=== PATIENT | female | born 1960 | race Caucasian/White ===

== ENCOUNTER → 2017-09-03 | Outpatient (CLI) | payer BC | END | disposition home or self-care (01) | LOC: LAB EV 11:21 → LAB SHORT 11:21 | DX: N39.0 Urinary tract infection, site not specified (principal) | CPT/HCPCS: 87077; 87086; 87186 ==

== ENCOUNTER 2018-05-08 09:52 | Emergency (ER) | payer BC ==
[~2018-05-08] VITALS: Ht 170.2 cm; Wt 61.2 kg
[2018-05-08] MEDS ORDERED: VITAMIN D31000 UNIT PO (10:15)
[2018-05-08] MEDS ORDERED: CITA20 PO (10:15)
[2018-05-08] MEDS ORDERED: MAGOXI400 PO (10:16)
[2018-05-08] MEDS ORDERED: B Complex #11 EACH PO (10:16)
[2018-05-08] MEDS ORDERED: Fish Oil 10001000 MG PO (10:16)
[2018-05-08] MEDS ORDERED: Hair, Skin & N1 EACH PO (10:16)
[2018-05-08] MEDS ORDERED: CEPH500 PO (11:00)
== END 2018-05-08 11:15 | disposition home or self-care (01) ==
LOC: ER 09:52
DX: R50.9 Fever, unspecified (principal); Z88.2 Allergy status to sulfonamides; Z79.899 Other long term (current) drug therapy
CPT/HCPCS: 99283

== ENCOUNTER → 2018-08-05 | Outpatient (CLI) | payer BC ==
[~2018-08-05] MED LIST: B Complex #11 EACH PO; CEPH500 PO; CITA20 PO; Fish Oil 10001000 MG PO; Hair, Skin & N1 EACH PO; MAGOXI400 PO; VITAMIN D31000 UNIT PO
== END ==
LOC: LAB EV 12:44 → LAB SHORT 12:44
DX: N39.0 Urinary tract infection, site not specified (principal)
CPT/HCPCS: 87077; 87086; 87186

== ENCOUNTER → 2021-11-16 | Outpatient (CLI) | payer BC | END | disposition home or self-care (01) | LOC: LAB 12:16 → LAB SHORT 12:16 | DX: N30.01 Acute cystitis with hematuria (principal) | CPT/HCPCS: 87086 ==

== ENCOUNTER → 2022-04-20 | Outpatient (CLI) | payer OTHER, BC | END | disposition home or self-care (01) | LOC: LAB 07:26 → LAB SHORT 07:26 | DX: L82.0 Inflamed seborrheic keratosis (principal) | CPT/HCPCS: 88305 ==

== ENCOUNTER 2022-11-18 08:26 | Day surgery (SDC) | payer OTHER | END 2022-11-18 08:34 | disposition home or self-care (01) | LOC: ORSCSDS 08:26 | DX: M71.22 Synovial cyst of popliteal space [Baker], left knee (principal); Z53.9 Procedure and treatment not carried out, unspecified reason | CPT/HCPCS: A9270; J1885; J2704; J2795; J3010; J7120 ==

== ENCOUNTER 2022-12-02 11:06 | Day surgery (SDC) | payer OTHER ==
[~2022-12-02] VITALS: Ht 167.6 cm; Wt 65.5 kg
[2022-12-02] MEDS ORDERED: DULOXETINE HCL60 M1 PO (11:46)
[2022-12-02] MEDS ORDERED: LOSA50 PO (12:03)
--- NOTE | 2022-12-02 12:16 | NUR ---
12/02/22 1216 Laurie Fair CONTACT IN RIGHT EYE TAKEN OUT PER DR. CLAY'S REQUEST, PLACED IN SPECIMIN CUP AND PLACED WITH PERSONAL BELONGINGS.
--- NOTE | 2022-12-02 12:51 | NUR ---
12/02/22 1251 Melvina Richmond 30ML OF ROPIVACAINE 0.5% MIXED AND VERIFIED WITH 0.15ML OF EPI (1MG/ML) TO MAKE ROPIVACAINE 0.5% WITH EPI 1:200,000 FOR INJECTION AT OPSITE BY [facility].
[2022-12-02 14:01] VITALS: BP 117/97
== END 2022-12-02 14:04 | disposition home or self-care (01) ==
LOC: ORSCSDS 11:06
PROVIDERS: Orthopaedic Surgery
PROC: 0SBD0ZZ Excision of Left Knee Joint, Open Approach (ICD-10-PCS; principal; 2022-12-02 12:45)
DX: M71.22 Synovial cyst of popliteal space [Baker], left knee (principal); I10 Essential (primary) hypertension; Z87.891 Personal history of nicotine dependence; F41.9 Anxiety disorder, unspecified; M79.7 Fibromyalgia; Z79.899 Other long term (current) drug therapy
CPT/HCPCS: J0171; J0690; J2250; J2704; J2795; J3010; J7120

== ENCOUNTER 2022-12-12 09:34 | Emergency (ER) | payer OTHER ==
[~2022-12-12] VITALS: Ht 170.2 cm; Wt 63.5 kg
[~2022-12-12 09:34] MED LIST changes: +DULOXETINE HCL60 M1 PO; +LOSA50 PO
[2022-12-12 10:47] LABS: BASOPHILS ABSOLUTE AUTO 0.03 K/mm3 (0.00-0.23); BASOPHILS PERCENT AUTO 0 % (0-2); EOSINOPHILS ABSOLUTE AUTO 0.04 K/mm3 (0.00-0.68); EOSINOPHILS PERCENT AUTO 1 % (0-6); Hematocrit 40.3 % (33.0-51.0); Hemoglobin 13.3 g/dL (11.5-16.0); IMMATURE GRAN ABSOLUTE AUTO 0.01 K/mm3 (0.00-0.10); IMMATURE GRAN PERCENT AUTO 0 % (0-1); LYMPHOCYTES ABSOLUTE AUTO 0.87 K/mm3 (0.84-5.20); LYMPHOCYTES PERCENT AUTO 11 % (21-46); MONOCYTES ABSOLUTE AUTO 0.33 K/mm3 (0.16-1.47); MONOCYTES PERCENT AUTO 4 % (4-13); Mean Corpuscular HGB 32.4 pg (26.0-34.0); Mean Corpuscular Volume 98 fL (80-100); Mean Platelet Volume 8.5 fL (9.1-12.4); NEUTROPHILS ABSOLUTE AUTO 6.97 K/mm3 (1.96-9.15); NEUTROPHILS PERCENT AUTO 85 % (41-73); Platelet Count 338 K/mm3 (150-400); RDW Coefficient Variation 12.2 % (11.7-14.2); RDW Standard Deviation 43.8 fL (35.1-46.3); Red Blood Cell Count 4.11 M/mm3 (3.80-5.20); White Blood Cell Count 8.25 K/mm3 (4.00-11.30)
[2022-12-12 11:11] LABS: Anion Gap 6 mmol/L (6-16); Blood Urea Nitrogen 11 mg/dL (8-24); Bun/Creatinine Ratio 17.5 (12.0-20.0); C-REACTIVE PROTEIN, EXT RANGE <0.290 mg/dL (0.000-0.300); CO2, Blood 26 mmol/L (21-32); Calcium, Blood 8.9 mg/dL (8.5-10.1); Chloride, Blood 110 mmol/L (98-108); Creatinine, Blood 0.63 mg/dL (0.40-1.00); Glomerular Filtration Rate 101 (60-); Glucose, Blood 79 mg/dL (70-99); Potassium, Blood 3.8 mmol/L (3.5-5.5); Sodium, Blood 142 mmol/L (136-145)
[2022-12-12 12:00] VITALS: BP 100/60
[2022-12-12] MEDS ORDERED: Vibramycin100 MG PO (12:13)
[2022-12-15] MEDS ORDERED: Celexa20 MG PO (14:54)
[2022-12-15] MEDS ORDERED: DOXY100 PO (14:56)
== END 2022-12-12 12:28 | disposition home or self-care (01) ==
LOC: ER 09:34
PROVIDERS: Emergency Medicine
DX: L76.33 Postprocedural seroma of skin and subcutaneous tissue following a dermatologic procedure (principal); M25.562 Pain in left knee; I10 Essential (primary) hypertension; Z88.2 Allergy status to sulfonamides; Z79.899 Other long term (current) drug therapy
CPT/HCPCS: 76882; 80048; 85025; 86140; 93971; 96374; 99284-25; A9270; J1885

== ENCOUNTER 2022-12-15 08:27 | Inpatient (IN) | payer OTHER ==
[~2022-12-15] VITALS: Ht 167.6 cm; Wt 71.3 kg
[~2022-12-15 08:27] MED LIST changes: +Vibramycin100 MG PO
[2022-12-15 10:04] LABS: BASOPHILS ABSOLUTE AUTO 0.03 K/mm3 (0.00-0.23); BASOPHILS PERCENT AUTO 0 % (0-2); EOSINOPHILS ABSOLUTE AUTO 0.02 K/mm3 (0.00-0.68); EOSINOPHILS PERCENT AUTO 0 % (0-6); Hematocrit 35.5 % (33.0-51.0); Hemoglobin 12.1 g/dL (11.5-16.0); IMMATURE GRAN ABSOLUTE AUTO 0.05 K/mm3 (0.00-0.10); IMMATURE GRAN PERCENT AUTO 1 % (0-1); LYMPHOCYTES ABSOLUTE AUTO 0.33 K/mm3 (0.84-5.20); LYMPHOCYTES PERCENT AUTO 5 % (21-46); MONOCYTES ABSOLUTE AUTO 0.32 K/mm3 (0.16-1.47); MONOCYTES PERCENT AUTO 4 % (4-13); Mean Corpuscular HGB 32.5 pg (26.0-34.0); Mean Corpuscular HGB Conc 34.1 g/dL (31.5-36.5); Mean Corpuscular Volume 95 fL (80-100); NEUTROPHILS ABSOLUTE AUTO 6.62 K/mm3 (1.96-9.15); NEUTROPHILS PERCENT AUTO 90 % (41-73); Platelet Count 247 K/mm3 (150-400); RDW Coefficient Variation 12.4 % (11.7-14.2); RDW Standard Deviation 43.4 fL (35.1-46.3); Red Blood Cell Count 3.72 M/mm3 (3.80-5.20); White Blood Cell Count 7.37 K/mm3 (4.00-11.30)
[2022-12-15 10:29] LABS: Albumin, Blood 2.9 g/dL (3.4-5.0); Albumin/Globulin Ratio 0.6 (0.8-1.8); Bilirubin, Total 0.9 mg/dL (0.1-1.0); Bun/Creatinine Ratio 17.6 (12.0-20.0); Calcium, Blood 9.1 mg/dL (8.5-10.1); Creatinine, Blood 0.57 mg/dL (0.40-1.00); Globulin, Blood 4.5 g/dL (2.2-4.0); Potassium, Blood 3.4 mmol/L (3.5-5.5); Total Protein, Blood 7.4 g/dL (6.4-8.2)
[2022-12-15] MEDS ORDERED: BUPR150ER PO (12:51)
[2022-12-15 14:47] VITALS: BP 111/71
[2022-12-15] MEDS ORDERED: Celexa20 MG PO ×2 (14:54)
[2022-12-15] MEDS ORDERED: DOXY100 PO ×2 (14:56)
--- NOTE | 2022-12-15 16:05 | NUR ---
CONSULT: SR AWAN STATES SPEAKING TO DR CARMONA FOR SURG CONSULT
--- NOTE | 2022-12-15 18:13 | NUR ---
"Spiritual Care Visit | Pt. Request Pt. is sitting up in bed eating dinner when she welcomes my visit. Pt. is pleasant and verbalizes gratitude for the surgeons to address the infection in her knee. Facilitate a life review and establish rapport. Pt. 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 Considered matters of av and belief, and prayed with the Pt. Pt. verbalized gratitude for thew spiritual care visit, and welcomed this dye house hand to return tomorrow."
[2022-12-15 18:14] LABS: Body Fluid Crystals NEG (NEGATIVE)
[2022-12-15 18:23] LABS: BODY FLUID RBC 0.007 M/mm3 (0-0)
[2022-12-15 18:31] LABS: RBC Count, Synovial Fluid 7000 /mm3 (0-0)
[2022-12-15 18:32] LABS: WBC Count, Synovial Fluid 21640 /mm3 (0-180)
[2022-12-15 18:33] LABS: Appearance, Synovial Fluid Cloudy (Clear); Color, Synovial Fluid Pale Yellow (None-P Yel)
--- NOTE | 2022-12-15 18:47 | NUR ---
DR CARMONA IN TO DRAW OFF L KNEE. SENT TO LAB. PT TO BE NPO MIDNITE FOR DAY SURG TOMORROW. SBA TO BATHROOM. FWW. PAIN TOLERATED WITH 0.5 MG DILAUDID. NO OTHER CONCERNS NOTED THIS BEN. BED IN LOW POSITION, CALL LITE IN REACH, CALLS APPROP
[2022-12-15 19:08] LABS: Lymphs, Synovial Fluid 1 % (0-15); Monocytes/Macrophages, Synovia 15 % (0-65); Neutrophils, Synovial Fluid 84 % (0-24)
[2022-12-15 19:25] VITALS: BP 126/78
[2022-12-16] VITALS (22 sets, daily range): BP systolic 105–157; BP diastolic 59–100
[2022-12-16 05:41] LABS: BASOPHILS ABSOLUTE AUTO 0.02 K/mm3 (0.00-0.23); BASOPHILS PERCENT AUTO 0 % (0-2); EOSINOPHILS ABSOLUTE AUTO 0.05 K/mm3 (0.00-0.68); EOSINOPHILS PERCENT AUTO 1 % (0-6); Hemoglobin 11.2 g/dL (11.5-16.0); Mean Corpuscular HGB 32.4 pg (26.0-34.0); Mean Corpuscular HGB Conc 33.9 g/dL (31.5-36.5); Mean Corpuscular Volume 95 fL (80-100); Mean Platelet Volume 9.4 fL (9.1-12.4); Platelet Count 232 K/mm3 (150-400); RDW Coefficient Variation 12.5 % (11.7-14.2); RDW Standard Deviation 43.8 fL (35.1-46.3); Red Blood Cell Count 3.46 M/mm3 (3.80-5.20); White Blood Cell Count 5.62 K/mm3 (4.00-11.30)
[2022-12-16 05:43] LABS: IMMATURE GRAN ABSOLUTE AUTO 0.03 K/mm3 (0.00-0.10); IMMATURE GRAN PERCENT AUTO 1 % (0-1); LYMPHOCYTES ABSOLUTE AUTO 0.82 K/mm3 (0.84-5.20); LYMPHOCYTES PERCENT AUTO 15 % (21-46); MONOCYTES ABSOLUTE AUTO 0.76 K/mm3 (0.16-1.47); MONOCYTES PERCENT AUTO 14 % (4-13); NEUTROPHILS ABSOLUTE AUTO 3.94 K/mm3 (1.96-9.15); NEUTROPHILS PERCENT AUTO 70 % (41-73)
[2022-12-16 06:06] LABS: Bun/Creatinine Ratio 16.8 (12.0-20.0); Calcium, Blood 8.6 mg/dL (8.5-10.1); Creatinine, Blood 0.6 mg/dL (0.40-1.00); Potassium, Blood 3.6 mmol/L (3.5-5.5)
--- NOTE | 2022-12-16 06:18 | NUR ---
SHIFT SUMMARY PRN DILAUDID GIVEN THROUGH OUT SHIFT. PT HAS FREQUENTLY REQUESTED DILAUDID FOR PAIN LEVELS OF 3-4 ONLY WHEN SHE MOVES HER KNEE AND KEEPS ASKING WHEN SHE LAST RECEIVED IT SO SHE CAN TAKE IT SOON ITS AVAILABLE DESPITE HER PAIN LEVEL BECAUSE SHE KNOWS EVENTUALLY IT WILL GET BAD. EDUCATED PT THAT THE MEDICATION IS PRN AND SHOULD BE GIVEN FOR SEVERE PAIN AND TO REQUEST MEDICATION WHEN HER PAIN IS STARTING TO GET BAD, SINCE SHE WILL NOT TAKE ANYTHING OTHER THAN THE DILAUDID, EXPLAINED THAT SHE NEEDS TO NOT WORRY ABOUT WHEN SHE LAST RECEIVED IT AND REPORT HER PAIN WHEN SHE HAS IT. PT REFUSING TO GET OOB AND USE THE RESTROOM, PT WILL ONLY USE THE BEDPAN. PT MADE NPO SINCE MIDNIGHT. PRN TYLENOL GIVEN PER PT REQUEST FOR TEMP OF 100.4. WILL CONTINUE TO MONITOR. Q1H FIRE SAFETY CHECKS COMPLETED, NO IGNITION SOURCES FOUND.
[2022-12-16 07:02] LABS: BASOPHILS PERCENT MAN 0 % (0-2); EOSINOPHILS ABSOLUTE MAN 0.11 K/mm3 (0.00-0.68); EOSINOPHILS PERCENT MAN 2 % (0-6); LYMPHOCYTES ABSOLUTE MAN 0.89 K/mm3 (0.84-5.20); LYMPHOCYTES PERCENT MAN 16 % (21-46); MONOCYTES ABSOLUTE MAN 0.39 K/mm3 (0.16-1.47); MONOCYTES PERCENT MAN 7 % (4-13); NEUTROPHILS ABSOLUTE MAN 4.21 K/mm3 (1.96-9.15); SEG NEUTROPHILS PERCENT MAN 75 % (41-73); TOTAL CELLS COUNTED 100
--- NOTE | 2022-12-16 12:08 | NUR ---
PT OUT TO DAY SURG
--- NOTE | 2022-12-16 12:10 | NUR ---
Into sds via bed. Pt is a&ox4 and denies pain or nausea. History, Chart, Medications and Allergies reviewed before start of procedure.Lungs clear T/O to Auscultation. Patient confirms NPO status and agrees with scheduled surgery.
--- NOTE | 2022-12-16 12:15 | NUR ---
#20 PIV TO RIGHT FOREARM SLIGHTLY RED AROUND INSERTION SITE, BUT SITE NOT TENDER AND IV FLUSHES WELL.
--- NOTE | 2022-12-16 18:54 | NUR ---
PT OUT TO DAY SURG THIS AM. BACK 1630. VSS. OFF O2 NOW. >93%. PAIN UNDER CONTROL. CHRISTAL DRAIN S/S FLUID IN CONTAINER. SMALL AMT IN CONTAINER. LITTLE CHANGE SINCE BROUGHT TO ROOM. LEG IN BRACE. TOES WARM, PINK. CAP REFILL <3SEC. NO OTHER CONCERNS NOTED. BED IN LOW POSITION, CALLLITE IN REACH, CALLS APPROP
[2022-12-16 23:22] LABS: Vancomycin, Trough 8.8 ug/mL (5.0-10.0)
[2022-12-17 02:40] VITALS: BP 115/81
[2022-12-17 02:41] VITALS: BP 115/81
[2022-12-17 05:27] LABS: BASOPHILS PERCENT AUTO 0 % (0-2); EOSINOPHILS PERCENT AUTO 0 % (0-6); Hematocrit 33.8 % (33.0-51.0); Hemoglobin 11.5 g/dL (11.5-16.0); IMMATURE GRAN ABSOLUTE AUTO 0.03 K/mm3 (0.00-0.10); IMMATURE GRAN PERCENT AUTO 1 % (0-1); LYMPHOCYTES ABSOLUTE AUTO 0.49 K/mm3 (0.84-5.20); LYMPHOCYTES PERCENT AUTO 12 % (21-46); MONOCYTES ABSOLUTE AUTO 0.35 K/mm3 (0.16-1.47); MONOCYTES PERCENT AUTO 9 % (4-13); Mean Corpuscular HGB 32.5 pg (26.0-34.0); Mean Corpuscular Volume 96 fL (80-100); Mean Platelet Volume 9.3 fL (9.1-12.4); NEUTROPHILS ABSOLUTE AUTO 3.23 K/mm3 (1.96-9.15); NEUTROPHILS PERCENT AUTO 79 % (41-73); Platelet Count 266 K/mm3 (150-400); RDW Coefficient Variation 12.4 % (11.7-14.2); RDW Standard Deviation 43.8 fL (35.1-46.3); Red Blood Cell Count 3.54 M/mm3 (3.80-5.20)
[2022-12-17 05:50] LABS: Bun/Creatinine Ratio 19.1 (12.0-20.0); Calcium, Blood 8.9 mg/dL (8.5-10.1); Creatinine, Blood 0.52 mg/dL (0.40-1.00); Potassium, Blood 3.7 mmol/L (3.5-5.5)
--- NOTE | 2022-12-17 06:17 | NUR ---
SHIFT SUMMARY PAIN WELL CONTROLLED THIS SHIFT, ONLY REQUIRING TYLENOL, PT DID NOT NEED DILAUDID AND FEELS HER PAIN IS WELL CONTROLLED. CHRISTAL DRAIN HAD OUT 20CC OF SANGINOUS DRAINING AT 0000, HAS HAD NO MORE OUTPUT SINCE. Q1H FIRE SAFETY CHECKS PERFORMED, NO IGNITION SOURCES FOUND
[2022-12-17 07:57] VITALS: BP 117/73
[2022-12-17 15:25] VITALS: BP 114/63
--- NOTE | 2022-12-17 18:23 | NUR ---
SHIFT SUMMARY: JONATHAN IS A&OX4. VSS, NO ACUTE EVENTS THIS SHIFT. PER DR. RINALDI, PT WILL REQUIRE 2-4 WEEKS OF IV ANTIBIOTICS, PLAN TO CONTINUE THE CURRENT SCHEDULE OF VANCOMYCIN AND ROCEPHIN. PT WILL REQUIRE A PICC LINE, LUNCHEONETTE OPERATOR UPDATED AND ORDER PLACED. IMMOBILIZER IN PLACE TO LLE, PT IS A STANDBY ASSIST TO THE BEDSIDE COMMODE. CHRISTAL DRAIN WITH MINIMAL OUTPUT THIS SHIFT. PT IS LYING IN BED WITH THE CALL LIGHT IN REACH. WCTM UNTIL REPORT IS GIVEN TO BOTTOM SAW OPERATOR RN.
[2022-12-17 20:24] VITALS: BP 110/83
[2022-12-17 23:48] LABS: Vancomycin, Trough 18.7 ug/mL (5.0-10.0)
[2022-12-18 01:20] VITALS: BP 104/68
--- NOTE | 2022-12-18 06:07 | NUR ---
SHIFT SUMMARY PRN TYLENOL MANAGING PAIN WELL UNTIL AROUND 0500, PT REQUESTED PRN DILAUDID, GIVEN WITH POSITIVE EFFECT. PT ABLE TO GET TO BEDSIDE COMMODE WITH NO ASSISTANCE. CHRISTAL DRAIN HAS VERY MINIMAL OUTPUT FROM YESTERDAY DAY SHIFT, STILL NOT EVEN ENOUGH TO EMPTY. NEW IV PLACE, WAITING FOR PICC PLACEMENT. Q1H FIRE SAFETY CHECKS COMPLETED. NO IGNITION SOURCES FOUND
[2022-12-18 07:35] VITALS: BP 110/66
[2022-12-18 16:24] VITALS: BP 103/66
--- NOTE | 2022-12-18 17:18 | NUR ---
SHIFT SUMMARY: JONATHAN IS A&OX4. VSS, NO ACUTE EVENTS THIS SHIFT. PT HAS REPORTED INCREASED PAIN THIS SHIFT REQUIRING TWO DOSES OF IV DILAUDID. SHE IS INDEPENDENT TO THE BSC, IMMOBILIZER AND CHRISTAL DRAIN IN PLACE TO LLE. SHE IS TOLERATING PO INTAKE WELL AND USES THE CALL LIGHT APPROPRIATELY. IV TO R FOREARM PATENT. SHE IS LYING IN BED WITH THE CALL LIGHT IN REACH. WCTM UNTIL REPORT IS GIVEN TO SWEET PICKLED FRUIT MAKER RN.
[2022-12-18 19:42] VITALS: BP 112/75
--- NOTE | 2022-12-18 23:29 | NUR ---
HEARTBURN PT C/O HEARTBURN, DR. WHATLEY CALLED AND STATED SHE WILL PLACE AN ORDER FOR TUMS. PT ENCOURAGED TO SLEEP WITH HOB ELEVATED.
[2022-12-19 01:26] VITALS: BP 93/58
[2022-12-19 04:34] VITALS: BP 93/53
--- NOTE | 2022-12-19 05:18 | NUR ---
SHIFT SUMMARY PT MEDICATED FOR PAIN SEVERAL TIMES OVERNIGHT. SEE EMAR. VICODIN ORDERED AND GIVEN TO HELP DECREASE THE USE OF IV DILADID. SBP IN THE 90S. PT DENIES FAINTNESS/DIZZINESS. EASILY AROUSABLE. MAP AT 66 THIS AM. 10CC TOTAL OUTPUT FROM CHRISTAL DRAIN. NO OTHER ACUTE CHANGES IN ASSESSMENT AT THIS TIME. VS REVIEWED. PT RESTING IN BED. CALL LIGHT IN REACH. DENIES OTHER NEEDS AT THIS TIME.
[2022-12-19 07:42] VITALS: BP 113/73
[2022-12-19 16:04] VITALS: BP 107/75
--- NOTE | 2022-12-19 18:33 | NUR ---
PATIENT IS ALERT AND ORIENTED AND COOPERATIVE WITH CARE. ON RA. VSS. DR. YAN ASSESSED THE PATIENT'S LEFT KNEE AND CHANGED THE DRESSING THIS MORNING. BOTH DRAINS REMOVED AT THAT TIME. PLAN IS FOR POWERGLIDE PLACEMENT AND DC HOME WITH IV ROCEPHIN. PATIENTS PAIN IS MANAGED WELL PER EMAR. WILL CONTINUE TO MONITOR
[2022-12-19 19:41] VITALS: BP 108/67
--- NOTE | 2022-12-20 06:11 | NUR ---
SHIFT SUMMARY PT PLEASANT & COOPERATIVE T/O SHIFT. MEDICATED FOR PAIN SEVERAL TIMES THIS SHIFT. SEE EMAR. HIGHEST PAIN LEVEL WAS A 5/10. THIS WAS AN IMPROVEMENT FROM YESTERDAY. DRESSING CLEAN & INTACT. PT TAKING SELF TO BSC INDEPENDENTLY. NO OTHER ACUTE CHANGES IN ASSESSMENT AT THIS TIME. VS REVIEWED. CALL LIGHT IN REACH. PT DENIES OTHER NEEDS AT THIS TIME.
[2022-12-20 07:42] VITALS: BP 101/64
[2022-12-20 08:59] VITALS: BP 123/75
[2022-12-20] MEDS ORDERED: VISBIOME 112.51 EACH PO ×2 (11:58)
[2022-12-20] MEDS ORDERED: CEFTRIAXON1 GM/50 M1 IV ×2 (11:59)
[2022-12-20] MEDS ORDERED: HYDROCODONE-AC1 EA10 PO ×2 (12:00)
--- NOTE | 2022-12-20 13:01 | NUR ---
DRY DRESSING CHANGED AT 1230. SUPPLIES GIVEN TO PATIENT SO SHE CAN CHANGE THE DRESSING AT HOME. DISCHARGE PACKET GIVEN TO PATIENT ALONG WITH HARD SCRIPT FOR ANNI, COPY ON CHART. PERIPHERAL IV DC'D. BELONGINGS ARE BAGGED AND READY TO GO. PATIENT IS READY FOR DISCHARGE SOON HER FWW ARRIVES
[2022-12-20 14:58] VITALS: BP 113/67
== END 2022-12-20 15:21 | disposition home or self-care (01) | DRG 857 ==
LOC: ER 08:27 → MEDS 08:28
PROVIDERS: Emergency Medicine; Orthopaedic Surgery; ADMIT Internal Medicine
PROC: 0QBC4ZZ Excision of Left Lower Femur, Percutaneous Endoscopic Approach (ICD-10-PCS; 2022-12-16)
PROC: 0S9D40Z Drainage of Left Knee Joint with Drainage Device, Percutaneous Endoscopic Approach (ICD-10-PCS; 2022-12-16)
PROC: 0SBD4ZZ Excision of Left Knee Joint, Percutaneous Endoscopic Approach (ICD-10-PCS; principal; 2022-12-16 12:30)
DX: T81.49XA Infection following a procedure, other surgical site, initial encounter (principal); L02.416 Cutaneous abscess of left lower limb; M00.862 Arthritis due to other bacteria, left knee; B95.4 Other streptococcus as the cause of diseases classified elsewhere; I10 Essential (primary) hypertension; F41.9 Anxiety disorder, unspecified; F10.90 Alcohol use, unspecified, uncomplicated; M25.462 Effusion, left knee; M79.7 Fibromyalgia; Z98.891 History of uterine scar from previous surgery; Z98.41 Cataract extraction status, right eye; Z98.890 Other specified postprocedural states; Z79.2 Long term (current) use of antibiotics; Z79.899 Other long term (current) drug therapy; Z88.2 Allergy status to sulfonamides; Y83.8 Other surgical procedures as the cause of abnormal reaction of the patient, or of later complication, without mention of misadventure at the time of the procedure
CPT/HCPCS: 36415; 73701; 80048; 80053; 80202; 83605; 85025; 87040; 87070; 87075; 87147; 87205; 89051; 89060; 94760; 96365; 96366; 96367; 96375; 96376; 99284-25; A9270; G0378; J0171; J0696; J1100; J1170; J1650; J2405; J2704; J3010; J3370; J7050; J7120; Q9967

== ENCOUNTER 2022-12-21 01:10 | Day surgery (SDC) | payer OTHER ==
[~2022-12-21 01:10] MED LIST changes: +BUPR150ER PO; +CEFTRIAXON1 GM/50 M1 IV; +Celexa20 MG PO; +DOXY100 PO; +HYDROCODONE-AC1 EA10 PO; +VISBIOME 112.51 EACH PO
[2022-12-21 15:16] VITALS: BP 110/76
== END 2022-12-21 15:42 | disposition home or self-care (01) ==
LOC: ATC 01:10
DX: M00.9 Pyogenic arthritis, unspecified (principal); I10 Essential (primary) hypertension; Z88.2 Allergy status to sulfonamides; F41.9 Anxiety disorder, unspecified
CPT/HCPCS: 96365; J0696

== ENCOUNTER 2022-12-23 00:39 | Day surgery (SDC) | payer OTHER ==
[2022-12-23 15:29] VITALS: BP 109/92
== END 2022-12-23 15:55 | disposition home or self-care (01) ==
LOC: ATC 00:39
DX: M00.9 Pyogenic arthritis, unspecified (principal); I10 Essential (primary) hypertension
CPT/HCPCS: 96365; J0696

== ENCOUNTER 2022-12-24 02:09 | Day surgery (SDC) | payer OTHER ==
[2022-12-24 14:40] VITALS: BP 135/95
== END 2022-12-24 15:10 | disposition home or self-care (01) ==
LOC: ATC 02:09
DX: M00.9 Pyogenic arthritis, unspecified (principal); F41.9 Anxiety disorder, unspecified; Z88.2 Allergy status to sulfonamides; I10 Essential (primary) hypertension
CPT/HCPCS: 96365; J0696

== ENCOUNTER 2022-12-25 00:56 | Day surgery (SDC) | payer OTHER ==
[2022-12-25 14:20] VITALS: BP 117/79
== END 2022-12-25 14:42 | disposition home or self-care (01) ==
LOC: ATC 00:56
DX: M00.9 Pyogenic arthritis, unspecified (principal); I10 Essential (primary) hypertension
CPT/HCPCS: 96365; J0696

== ENCOUNTER 2022-12-26 03:20 | Day surgery (SDC) | payer OTHER ==
[2022-12-26 14:17] VITALS: BP 120/79
[2022-12-27] MEDS ORDERED: 1/2 NS 250ml250 ML (11:43)
[2022-12-27] MEDS ORDERED: DULO60 PO ×3 (11:43→15:24)
[2022-12-27] MEDS ORDERED: Celexa20 MG PO (15:03)
[2022-12-27] MEDS ORDERED: LOSA50 PO (15:03)
[2022-12-27] MEDS ORDERED: VITAMIN D31000 UNI1 PO (15:03)
[2022-12-27] MEDS ORDERED: MULVITA PO (15:03)
[2022-12-27] MEDS ORDERED: Norco 5-325 Ta1 EACH PO (15:04)
[2022-12-27] MEDS ORDERED: CEFTRIAXON1 GM/50 M1 IV (15:26)
== END 2022-12-26 14:34 | disposition home or self-care (01) ==
LOC: ATC 03:20
DX: M00.9 Pyogenic arthritis, unspecified (principal); I10 Essential (primary) hypertension; Z88.2 Allergy status to sulfonamides; Z79.899 Other long term (current) drug therapy
CPT/HCPCS: 96365; J0696

== ENCOUNTER 2022-12-27 08:49 | Day surgery (SDC) | payer OTHER ==
[2022-12-27] MEDS ORDERED: 1/2 NS 250ml250 ML (11:43)
[2022-12-27] MEDS ORDERED: DULO60 PO ×3 (11:43→15:24)
[2022-12-27 12:04] LABS: Glucose, Body Fluid 28 mg/dL; Protein, Body Fluid 5.7 g/dL
[2022-12-27 12:39] LABS: Appearance, Synovial Fluid Bloody (Clear); Color, Synovial Fluid Red (None-P Yel)
[2022-12-27 12:40] LABS: BODY FLUID RBC 0.293 M/mm3 (0-0); RBC Count, Synovial Fluid 293000 /mm3 (0-0); WBC Count, Synovial Fluid 42650 /mm3 (0-180)
[2022-12-27 12:59] LABS: Lymphs, Synovial Fluid 3 % (0-15); Neutrophils, Synovial Fluid 97 % (0-24)
[2022-12-27] MEDS ORDERED: MULVITA PO (15:03)
[2022-12-27] MEDS ORDERED: LOSA50 PO (15:03)
[2022-12-27] MEDS ORDERED: Celexa20 MG PO (15:03)
[2022-12-27] MEDS ORDERED: VITAMIN D31000 UNI1 PO (15:03)
[2022-12-27] MEDS ORDERED: Norco 5-325 Ta1 EACH PO (15:04)
[2022-12-27] MEDS ORDERED: CEFTRIAXON1 GM/50 M1 IV (15:26)
== END 2022-12-27 22:50 | disposition home or self-care (01) ==
LOC: ATC 08:49
PROVIDERS: Orthopaedic Surgery
DX: M00.9 Pyogenic arthritis, unspecified (principal); I10 Essential (primary) hypertension; Z88.2 Allergy status to sulfonamides
CPT/HCPCS: 82945; 84157; 89051

== ENCOUNTER 2022-12-27 11:30 | Inpatient (IN) | payer OTHER ==
[~2022-12-27] VITALS: Ht 167.6 cm; Wt 67.8 kg
[2022-12-27] MEDS ORDERED: DULO60 PO ×3 (11:43→15:24)
[2022-12-27] MEDS ORDERED: 1/2 NS 250ml250 ML (11:43)
[2022-12-27 13:25] LABS: BASOPHILS ABSOLUTE AUTO 0.03 K/mm3 (0.00-0.23); BASOPHILS PERCENT AUTO 0 % (0-2); EOSINOPHILS ABSOLUTE AUTO 0.01 K/mm3 (0.00-0.68); EOSINOPHILS PERCENT AUTO 0 % (0-6); Hematocrit 33.8 % (33.0-51.0); Hemoglobin 11.3 g/dL (11.5-16.0); IMMATURE GRAN ABSOLUTE AUTO 0.04 K/mm3 (0.00-0.10); IMMATURE GRAN PERCENT AUTO 0 % (0-1); LYMPHOCYTES ABSOLUTE AUTO 1.01 K/mm3 (0.84-5.20); LYMPHOCYTES PERCENT AUTO 11 % (21-46); MONOCYTES ABSOLUTE AUTO 0.54 K/mm3 (0.16-1.47); MONOCYTES PERCENT AUTO 6 % (4-13); Mean Corpuscular HGB 31.8 pg (26.0-34.0); Mean Corpuscular HGB Conc 33.4 g/dL (31.5-36.5); Mean Corpuscular Volume 95 fL (80-100); Mean Platelet Volume 8.3 fL (9.1-12.4); NEUTROPHILS ABSOLUTE AUTO 7.88 K/mm3 (1.96-9.15); NEUTROPHILS PERCENT AUTO 83 % (41-73); Platelet Count 671 K/mm3 (150-400); RDW Coefficient Variation 12.6 % (11.7-14.2); RDW Standard Deviation 44.5 fL (35.1-46.3); Red Blood Cell Count 3.55 M/mm3 (3.80-5.20); White Blood Cell Count 9.51 K/mm3 (4.00-11.30)
[2022-12-27 13:40] LABS: Albumin, Blood 2.5 g/dL (3.4-5.0); Albumin/Globulin Ratio 0.5 (0.8-1.8); Bilirubin, Total 0.9 mg/dL (0.1-1.0); Bun/Creatinine Ratio 26.9 (12.0-20.0); Calcium, Blood 8.9 mg/dL (8.5-10.1); Creatinine, Blood 0.56 mg/dL (0.40-1.00); Globulin, Blood 5.2 g/dL (2.2-4.0); Potassium, Blood 4.1 mmol/L (3.5-5.5); Total Protein, Blood 7.7 g/dL (6.4-8.2)
[2022-12-27] MEDS ORDERED: Celexa20 MG PO (15:03)
[2022-12-27] MEDS ORDERED: VITAMIN D31000 UNI1 PO (15:03)
[2022-12-27] MEDS ORDERED: LOSA50 PO (15:03)
[2022-12-27] MEDS ORDERED: MULVITA PO (15:03)
[2022-12-27 15:04] VITALS: BP 124/75
[2022-12-27] MEDS ORDERED: Norco 5-325 Ta1 EACH PO (15:04)
[2022-12-27] MEDS ORDERED: CEFTRIAXON1 GM/50 M1 IV (15:26)
--- NOTE | 2022-12-27 15:35 | NUR ---
PATEINT TO THE FLOOR 1500, DR MARC IN SEEING PATIENT NOW, MEDICATED FOR PAIN, CALL LIGHT WITH IN REACH,
--- NOTE | 2022-12-27 19:24 | NUR ---
NO ACUTE CHANGES, NPO AT MIDNIGHT, MEDICATED WITH PERSOCET, PICTURES OF SURGICAL SIGHTS IN CHART, GOOD PULSES, VSS, ICE TO LEFT KNEE, ALERT AND ORIENTED MAKES NEEDS KNOWN, WILL RELAY TO PM RN
[2022-12-27 19:55] VITALS: BP 116/87
[2022-12-28 05:53] VITALS: BP 101/68
--- NOTE | 2022-12-28 06:05 | NUR ---
SHIFT SUMMARY- PT HAS HAD NO ACUTE CHANGES T/O THE NIGHT. SHE HAS BEEN NPO SINCE MIDNIGHT FOR A POSSIBLE SURGERY TODAY. PAIN MEDS GIVEN WITH A SIP OF WATER. AROUND 0530. PT IN BED, BED IN LOW POSITION, CALL LIGHT IN REACH, COOLING PAD IN PLACE ON THE LEFT KNEE, NO CURRENT S&S OF DISTRESS NOTED.
[2022-12-28 06:15] LABS: Hematocrit 30.7 % (33.0-51.0); Hemoglobin 9.9 g/dL (11.5-16.0); Mean Corpuscular HGB 30.9 pg (26.0-34.0); Mean Corpuscular HGB Conc 32.2 g/dL (31.5-36.5); Mean Corpuscular Volume 96 fL (80-100); Mean Platelet Volume 8.3 fL (9.1-12.4); Platelet Count 551 K/mm3 (150-400); RDW Coefficient Variation 12.7 % (11.7-14.2); RDW Standard Deviation 44.3 fL (35.1-46.3); White Blood Cell Count 4.84 K/mm3 (4.00-11.30)
[2022-12-28 06:42] LABS: Bun/Creatinine Ratio 21.4 (12.0-20.0); Calcium, Blood 8.8 mg/dL (8.5-10.1); Creatinine, Blood 0.61 mg/dL (0.40-1.00); Potassium, Blood 4.7 mmol/L (3.5-5.5)
[2022-12-28 08:07] VITALS: BP 111/71
[2022-12-28 14:40] VITALS: BP 119/73
--- NOTE | 2022-12-28 17:38 | NUR ---
DAYSHIFT SUMMARY Patient alert & oriented x4, reports severe leg pain. Percocet PRN effective for pain control. Left knee swollen, warm to the touch, sutures CDI. Pulses palpable & strong BLE. Capilalry refill < 3 seconds. Vitals stable, afebrile. Ancef IV administred. Ortho at bedside wrapped left leg. Plan to be NPO at midnight and review AM labs to decide if further interventions needed. Will continue plan of care.
[2022-12-28 20:44] VITALS: BP 118/67
[2022-12-29] VITALS (13 sets, daily range): BP systolic 108–167; BP diastolic 70–118
[2022-12-29 05:42] LABS: BASOPHILS ABSOLUTE AUTO 0.04 K/mm3 (0.00-0.23); BASOPHILS PERCENT AUTO 1 % (0-2); EOSINOPHILS ABSOLUTE AUTO 0.07 K/mm3 (0.00-0.68); EOSINOPHILS PERCENT AUTO 1 % (0-6); Hematocrit 30.6 % (33.0-51.0); IMMATURE GRAN ABSOLUTE AUTO 0.02 K/mm3 (0.00-0.10); IMMATURE GRAN PERCENT AUTO 0 % (0-1); LYMPHOCYTES ABSOLUTE AUTO 1.14 K/mm3 (0.84-5.20); LYMPHOCYTES PERCENT AUTO 21 % (21-46); MONOCYTES ABSOLUTE AUTO 0.48 K/mm3 (0.16-1.47); MONOCYTES PERCENT AUTO 9 % (4-13); Mean Corpuscular HGB 31.3 pg (26.0-34.0); Mean Corpuscular HGB Conc 32.7 g/dL (31.5-36.5); Mean Corpuscular Volume 96 fL (80-100); Mean Platelet Volume 8.8 fL (9.1-12.4); NEUTROPHILS ABSOLUTE AUTO 3.69 K/mm3 (1.96-9.15); NEUTROPHILS PERCENT AUTO 68 % (41-73); Platelet Count 519 K/mm3 (150-400); RDW Coefficient Variation 12.8 % (11.7-14.2); RDW Standard Deviation 45.1 fL (35.1-46.3); Red Blood Cell Count 3.19 M/mm3 (3.80-5.20); White Blood Cell Count 5.44 K/mm3 (4.00-11.30)
--- NOTE | 2022-12-29 06:10 | NUR ---
SHIFT SUMMARY- PT HAS HAD NO ACUTE CHANGES T/O THE NIGHT. PT CURRENTLY IN BED, CALL LIGHT IN REACH. PT WAS MADE NPO AT MIDNIGHT PER MD ORDER. SHE HAD MEDS WITH A SIP OF WATER.
--- NOTE | 2022-12-29 09:00 | NUR ---
Pt laying in bed, awake a/ox4, pleasant and coopertive with care, follows commands well, denies pain, lungs are clear t/o, resp even and unlabored, no cough noted, hrr, on r/a, hrr, +1 edema noted to left foot, iv is power glide to jase site is clear and patent, btx4 abd flat soft nontender, voids via bedpan, skin has left leg wrapped in acr wrap from thigh to toes, is very painful, will be having surg today, moves upper ext well, bed rest for now, aurelio call light in reach.
--- NOTE | 2022-12-29 19:37 | NUR ---
pt arrived back to room following surgery via bed, she was tearful, but calmed herself down, left leg is wrapped in parrish wrap with two drains, pt painful, pain meds given with good relief, no further changes this shift. call light in reach.
--- NOTE | 2022-12-30 04:20 | NUR ---
SHIFT SUMMARY 62 YR F ADMITTED ON 12/27/22 FOR SEPTIC ARTHRITIS OF LEFT KNEE. FULL CODE. NO ACUTE CHANGES THIS SHIFT. PT HAS ONLY ASKED FOR PAIN MEDS ONCE THIS SHIFT AND HAS SLEPT FOR MOST OF THE SHIFT. LEFT LEG IS IMMOBILIZED AND CHRISTAL DRAIN APPEARS TO BE DRAINING WELL W/ SANGUENOUS FLUID AFTER I&D YESTERDAY. PT IS PLEASANT AND COOPERATIVE WITH CARE. SHE APPEARS TO HAVE SLEPT WELL FOR AT LEAST 5-6 HOURS THIS SHIFT. BED IN LOW POSITION AND CALL LIGHT IN REACH.
[2022-12-30 05:09] VITALS: BP 120/73
[2022-12-30 07:23] VITALS: BP 121/84
[2022-12-30 08:17] LABS: Hematocrit 30.8 % (33.0-51.0); Hemoglobin 10.3 g/dL (11.5-16.0); Mean Corpuscular HGB 31.6 pg (26.0-34.0); Mean Corpuscular HGB Conc 33.4 g/dL (31.5-36.5); Mean Corpuscular Volume 95 fL (80-100); Mean Platelet Volume 8.2 fL (9.1-12.4); Platelet Count 664 K/mm3 (150-400); RDW Coefficient Variation 12.4 % (11.7-14.2); RDW Standard Deviation 43.3 fL (35.1-46.3); Red Blood Cell Count 3.26 M/mm3 (3.80-5.20); White Blood Cell Count 4.04 K/mm3 (4.00-11.30)
[2022-12-30 08:38] LABS: Bun/Creatinine Ratio 19.6 (12.0-20.0); Calcium, Blood 9.2 mg/dL (8.5-10.1); Creatinine, Blood 0.51 mg/dL (0.40-1.00); Potassium, Blood 4.4 mmol/L (3.5-5.5)
[2022-12-30 15:02] VITALS: BP 105/65
--- NOTE | 2022-12-30 17:14 | NUR ---
DAYSHIFT SUMMARY Patient alert & oriented x4. Reports moderate-severe pain in left knee. S/p I&D of left knee, CHRISTAL drain placed. Red bloody drainage observed. Reports pain with movement. Vitals stable. IV ABX administred. No acute changes to patient status. Will continue plan of care.
[2022-12-30 20:51] VITALS: BP 149/83
--- NOTE | 2022-12-31 04:32 | NUR ---
SHIFT SUMMARY- PT ALERT AND ORIENTED. 1PA WITH THE BEDPAN, CHRISTAL DRAIN IN PLACE NO DRAINAGE THIS SHIFT. PT HAS HAD NO ACUTE CHANGE T/O THE NIGHT, PAIN MANAGEMENT PER EMAR ROUND THE CLOCK. PT CALLS APPROPRIATELY, BED IN LOW POSITION AND CALL LIGHT IN REACH NO CURRENT S&S OF DISTRESS.
[2022-12-31 05:47] VITALS: BP 129/75
[2022-12-31 07:10] VITALS: BP 119/78
[2022-12-31 14:42] VITALS: BP 108/72
--- NOTE | 2022-12-31 16:37 | NUR ---
SHIFT SUMMARY PATIENT IS ALERT AND ORIENTED. PATIENT HAS HAD NO ACUTE EVENTS THIS SHIFT. VITAL SIGNS REVIEWED. PATIENT HAS REPORTED PAIN AND MEDICATED PER EMAR. PATIENT HAS NOT REPORTED AND SOB, NAUSEA, OR VOMITTING THIS SHIFT. CHRISTAL DRAIN HAS HAD MINIMAL DRAINAGE THIS SHIFT. PATIENT HAS BEEN PLEASENT AND CALLS APPROPRIATELY. BED IN LOWEST POSITION. CALL LIGHT IN PLACE. WILL MONITOR UNTIL SHIFT CHANGE.
[2022-12-31 20:05] VITALS: BP 109/67
[2023-01-01 05:17] VITALS: BP 123/75
--- NOTE | 2023-01-01 07:17 | NUR ---
END OF SHIFT SUMMARY PT PLEASANT AND COOPERATIVE WITH CARE PROVIDED. PT SLEPT FOR THE MAJORITY OF THE NIGHT. PT COMPLIANT WITH WEARING KNEE STABILIZER. PT C/O PAIN TO L LEG AND WAS MEDICATED 2X WITH PERCOCET WHICH WAS EFFECTIVE. CHRISTAL DRAIN HAS HAD SMALL AMOUNT OF OUTPUT, SEROSANGUINEOUS. PT ABLE TO MAKE NEEDS KNOWN, CALL LIGHT WITHIN REACH, WCTM.
[2023-01-01 07:25] VITALS: BP 112/72
[2023-01-01 15:20] VITALS: BP 119/77
--- NOTE | 2023-01-01 18:15 | NUR ---
SHIFT SUMMARY NO ACUTE CHANGES THIS SHIFT. PATIENT IS ALERT AND ORIENTED, ABLE TO MAKE HER NEEDS KNOWN. SHE HAS STARTED TO AMBULATE TO THE BATHROOM WITH WALKER AND ONE PERSON STANDBY ASSIST. CHRISTAL DRIN IS IN PLACE, 18ML BRIGHT RED OUTPUT THIS SHIFT. PAIN MANAGED WITH 10MG PERCOCET X2 THIS SHIFT. ICE ALSO USED X2 FOR COMFORT. ANTICIPATE DRAIN TO BE REMOVED TOMORROW 01/02. KNEE INCISION X3, 2 ANTERIOR ANTERIOR AND ONE POSTERIOR DRESSED WITH XEROFORM, KNEE WRAPPED IN GAUZE AND ANTON BANDAGE. BED LOW AND LOCKED, CALL LIGHT WITHIN REACH. WILL CONT TO MONITOR AND PROVIDE REPORT TO ONCOMING RN.
[2023-01-01 19:35] VITALS: BP 122/84
[2023-01-02 06:16] VITALS: BP 112/58
--- NOTE | 2023-01-02 06:20 | NUR ---
SHIFT SUMMARY PT IS A&O4, SB WITH WALKER TO THE BR, PT HAS BEEN COMPLIANT WITH IMMOBILIZER, PRN PAIN MEDICATION GIVEN X3 PER MAR FOR RIGHT KNEE PAIN, 15CC SEROSANGENOUS FLUID FROM CHRISTAL DRAIN OVERNIGHT, NO ACUTE OVERNIGHT EVENTS, CONTINUE POC
[2023-01-02 07:19] VITALS: BP 111/67
[2023-01-02 15:02] VITALS: BP 122/78
--- NOTE | 2023-01-02 16:50 | NUR ---
SHIFT SUMMARY PT A&OX4 AND PLEASANT. PT C/O PAIN IN RIGHT KNEE. ICE PACK APPLIED AND MEDICATED PER EMAR. DR RINALDI IN TO SEE PT. DRESSING CHANGED WITH ABD PAD PLACED ON FRONT AND BACK OF KNEE AND WRAPPED IN ANTON BANDAGE. PT TOLERATED WELL. DR RINALDI STATED HE WOULD LIKE TO LEAVE CHRISTAL DRAIN IN FOR ONE MORE DAY. PICC LINE ORDERED. CHARGE NURSE STATED PICC WOULD BE PLACED TOMORROW, 01/03/23, BEFORE PT'S DISCHARGE. CONTINUING IV ABX. NO ACUTE CHANGES. VSS. BED IN LOWEST POSITION AND CALL LIGHT IN REACH.
[2023-01-02 20:35] VITALS: BP 120/84
[2023-01-03 05:48] VITALS: BP 111/79
--- NOTE | 2023-01-03 05:55 | NUR ---
SHIFT SUMMARY PT IS A&O4, SB WITH FWW TO BR, RA, VSS, PRN PAIN MEDICATION GIVEN PER MAR X3, 2.5CC SEROSANGINOUS FLUID REMOVED FROM CHRISTAL DRAIN, PT COMPLIANT WITH IMMOBILIZER OVERNIGHT, NO ACUTE EVENTS, CONTINUE POC
[2023-01-03 07:44] VITALS: BP 111/78
[2023-01-03] MEDS ORDERED: VISBIOME 112.51 EACH PO (13:22)
[2023-01-03] MEDS ORDERED: XARELTO20 MG PO (13:23)
[2023-01-03] MEDS ORDERED: OXYC10ER PO (13:28)
--- NOTE | 2023-01-03 16:25 | NUR ---
PT DISCHARGED HOME WITH HOME HEALTH. DC INSTRUCTIONS AND EDUCATION MATERILA GIVEN TO PT. NO NEW QUESTIONS FROM PT. IV DC'D. SUPPLIES FOR DAILY DRESSING CHANGES ON LEFT KNEE PROVIDED WITH INSTRUCTIONS FOR DRESSING CHANGE. INSTRUCTIONS FOR ICING KNEE AND KEEPING DRESSING DRY WHILE SHOWERING GIVEN. HAD QUESTIONS ABOUT GETTING BSC. INFORMED THAT PRESS OPERATOR REQUESTED BSC FROM [facility]. ALSO ADVISED THAT BSC COULD BE PURSHACED AT [facility], [facility] AND [facility] SINCE STATED HE HAD [facility] AND WAS WILLING TO PAY OUT OF POCKET. PT HELPED TO DRESS AND GATHER ALL BELONGINGS. LEG BRACE PLACED ON PT'S KNEE. PT TAKEN BY WHEELCHAIR TO WAITING VEHICLE.
== END 2023-01-03 16:19 | disposition home health service (06) | DRG 857 ==
LOC: ER 11:30 → SURS 11:31 → MEDS 11:31
PROVIDERS: Emergency Medicine; Orthopaedic Surgery; ADMIT Internal Medicine
PROC: 0S9D3ZZ Drainage of Left Knee Joint, Percutaneous Approach (ICD-10-PCS; 2022-12-27)
PROC: 0S9D40Z Drainage of Left Knee Joint with Drainage Device, Percutaneous Endoscopic Approach (ICD-10-PCS; 2022-12-29)
PROC: 0SBD4ZZ Excision of Left Knee Joint, Percutaneous Endoscopic Approach (ICD-10-PCS; principal; 2022-12-29 13:30)
DX: T81.49XA Infection following a procedure, other surgical site, initial encounter (principal); E87.1 Hypo-osmolality and hyponatremia; M00.9 Pyogenic arthritis, unspecified; I10 Essential (primary) hypertension; F41.9 Anxiety disorder, unspecified; E55.9 Vitamin D deficiency, unspecified; K59.00 Constipation, unspecified; Y83.8 Other surgical procedures as the cause of abnormal reaction of the patient, or of later complication, without mention of misadventure at the time of the procedure; Z88.2 Allergy status to sulfonamides; Z79.899 Other long term (current) drug therapy; Z98.890 Other specified postprocedural states
CPT/HCPCS: 36415; 73701; 80048; 80053; 85025; 85027; 85651; 86140; 86141; 87070; 87075; 87205; 96365-59; 96375-59; 99285-25; A9270; G0378; J0171; J0690; J1100; J1170; J1650; J1885; J2250; J2405; J2704; J3010; J7050; J7120; Q9967

== ENCOUNTER 2023-01-10 02:19 | Day surgery (SDC) | payer OTHER ==
[~2023-01-10 02:19] MED LIST changes: +1/2 NS 250ml250 ML; +DULO60 PO; +MULVITA PO; +Norco 5-325 Ta1 EACH PO; +OXYC10ER PO; +VITAMIN D31000 UNI1 PO; +XARELTO20 MG PO
[2023-01-10 10:44] VITALS: BP 123/84
[2023-01-10 11:43] LABS: BASOPHILS ABSOLUTE AUTO 0.04 K/mm3 (0.00-0.23); BASOPHILS PERCENT AUTO 1 % (0-2); EOSINOPHILS ABSOLUTE AUTO 0.03 K/mm3 (0.00-0.68); EOSINOPHILS PERCENT AUTO 1 % (0-6); Hematocrit 34.1 % (33.0-51.0); Hemoglobin 10.8 g/dL (11.5-16.0); IMMATURE GRAN ABSOLUTE AUTO 0.01 K/mm3 (0.00-0.10); IMMATURE GRAN PERCENT AUTO 0 % (0-1); LYMPHOCYTES ABSOLUTE AUTO 1.71 K/mm3 (0.84-5.20); LYMPHOCYTES PERCENT AUTO 36 % (21-46); MONOCYTES ABSOLUTE AUTO 0.33 K/mm3 (0.16-1.47); MONOCYTES PERCENT AUTO 7 % (4-13); Mean Corpuscular HGB Conc 31.7 g/dL (31.5-36.5); Mean Corpuscular Volume 95 fL (80-100); Mean Platelet Volume 8.1 fL (9.1-12.4); NEUTROPHILS ABSOLUTE AUTO 2.63 K/mm3 (1.96-9.15); NEUTROPHILS PERCENT AUTO 56 % (41-73); Platelet Count 675 K/mm3 (150-400); RDW Coefficient Variation 13.3 % (11.7-14.2); RDW Standard Deviation 47.1 fL (35.1-46.3); White Blood Cell Count 4.75 K/mm3 (4.00-11.30)
[2023-01-10 11:52] LABS: Bun/Creatinine Ratio 16.7 (12.0-20.0); Calcium, Blood 8.9 mg/dL (8.5-10.1); Creatinine, Blood 0.54 mg/dL (0.40-1.00); Potassium, Blood 4.2 mmol/L (3.5-5.5)
== END 2023-01-10 11:22 | disposition home or self-care (01) ==
LOC: ATC 02:19
PROVIDERS: Nurse Practitioner Family
DX: M00.062 Staphylococcal arthritis, left knee (principal); Z88.2 Allergy status to sulfonamides; I10 Essential (primary) hypertension; F41.9 Anxiety disorder, unspecified
CPT/HCPCS: 80048; 85025; 99212

== ENCOUNTER → 2023-03-15 | Outpatient (CLI) | payer OTHER ==
[2023-03-15 12:54] LABS: BODY FLUID RBC 0.319 M/mm3 (0-0)
[2023-03-15 13:14] LABS: WBC Count, Synovial Fluid 3958 /mm3 (0-180)
[2023-03-15 13:15] LABS: RBC Count, Synovial Fluid 319000 /mm3 (0-0)
[2023-03-15 13:41] LABS: Appearance, Synovial Fluid Cloudy (Clear); Color, Synovial Fluid Red (None-P Yel); Lymphs, Synovial Fluid 10 % (0-15); Monocytes/Macrophages, Synovia 9 % (0-65); Neutrophils, Synovial Fluid 81 % (0-24)
== END | disposition home or self-care (01) ==
LOC: LAB SHORT 11:45 → LAB 11:45
PROVIDERS: Physician Assistant Surgical
DX: M00.862 Arthritis due to other bacteria, left knee (principal)
CPT/HCPCS: 87070; 87075; 87205; 89051

== ENCOUNTER 2023-04-13 14:05 | Day surgery (SDC) | payer OTHER ==
[~2023-04-13] VITALS: Ht 170.2 cm; Wt 63.1 kg
[2023-04-13] VITALS (8 sets, daily range): BP systolic 144–178; BP diastolic 89–105
[~2023-04-13 14:05] MED LIST changes: +LOSA25 PO
== END 2023-04-13 18:20 | disposition home or self-care (01) ==
LOC: ORSCMMR 14:05 → ORD 15:30 → ORSCMMR 18:20
PROVIDERS: Orthopaedic Surgery
PROC: 0SNDXZZ Release Left Knee Joint, External Approach (ICD-10-PCS; principal; 2023-04-13 17:00)
DX: M00.862 Arthritis due to other bacteria, left knee (principal); M24.662 Ankylosis, left knee; I10 Essential (primary) hypertension; F41.8 Other specified anxiety disorders; Z79.899 Other long term (current) drug therapy
CPT/HCPCS: 73560-LT; J0690; J1885; J2250; J2704; J3010; J7120

== ENCOUNTER 2023-08-30 06:28 | Day surgery (SDC) | payer OTHER ==
[~2023-08-30] VITALS: Ht 167.6 cm; Wt 66.4 kg
[~2023-08-30 06:28] MED LIST changes: +Balanced Salt Epinephrine Irrigation Solution 500 mL IR SCH; +Lidocaine HCl/Pf 1% 5 ML VIAL XX SCH; +Moxifloxacin HCL 0.5 MG/0.1 ML 0.4MLSYR LEFTEYE SCH; +NS 500 ML IV ONE; +Naltrexone HCl50 MG PO; +PHENYLEPHRINE\\TROPICAMIDE\\TETRACAINE OPHTHALMIC DILATING SOLN LEFTEYE PRN; +Povidone-Iodine 450 DROP/30 ML Solution LEFTEYE SCH
[2023-08-30] MEDS ORDERED: NS 500 ML IV ONE (06:44)
[2023-08-30] MEDS ORDERED: DODEX1000 MCG/1 IM (06:47)
[2023-08-30] MEDS ORDERED: Lidocaine HCl/Pf 1% 5 ML VIAL ONE (06:48)
--- NOTE | 2023-08-30 06:56 | NUR ---
08/30/23 0656 Chio SueroINE IN AT 0645 PLEDGETT IN AT 0646 CALL LIGHT AT BEDSIDE
[2023-08-30] MEDS ORDERED: FentaNYL Citrate 50 MCG/ML 2 ML Injection ONE (07:13)
[2023-08-30] MEDS ORDERED: Midazolam HCl 1MG / ML 2ML Vial ONE (07:15)
[2023-08-30] MEDS ORDERED: Tetracaine HCl 0.5% Opth Soln 15 ml LEFTEYE ONE (07:30)
[2023-08-30 07:54] VITALS: BP 141/83
[2023-08-30] MEDS ORDERED: Tropicamide 1% Opth Soln 15 ML BTL ONE (08:14)
== END 2023-08-30 08:07 | disposition home or self-care (01) ==
LOC: ORSCSDS 06:28
PROVIDERS: Student in an Organized Health Care Education/Training Program
PROC: 08RK3JZ Replacement of Left Lens with Synthetic Substitute, Percutaneous Approach (ICD-10-PCS; principal; 2023-08-30 07:30)
DX: H25.12 Age-related nuclear cataract, left eye (principal); Z96.1 Presence of intraocular lens; F32.A Depression, unspecified; F41.9 Anxiety disorder, unspecified; M79.7 Fibromyalgia; I10 Essential (primary) hypertension; H52.31 Anisometropia; Z79.899 Other long term (current) drug therapy
CPT/HCPCS: J2001; J2250; J3010; J7040; V2632

== ENCOUNTER → 2023-10-24 | Outpatient (CLI) | payer OTHER ==
[~2023-10-24] MED LIST changes: -Balanced Salt Epinephrine Irrigation Solution 500 mL IR SCH; +DODEX1000 MCG/1 IM; -Lidocaine HCl/Pf 1% 5 ML VIAL XX SCH; -Moxifloxacin HCL 0.5 MG/0.1 ML 0.4MLSYR LEFTEYE SCH; -NS 500 ML IV ONE; -PHENYLEPHRINE\\TROPICAMIDE\\TETRACAINE OPHTHALMIC DILATING SOLN LEFTEYE PRN; -Povidone-Iodine 450 DROP/30 ML Solution LEFTEYE SCH
== END | disposition home or self-care (01) ==
LOC: LAB SHORT 11:54 → LAB 11:54
DX: R30.0 Dysuria (principal)
CPT/HCPCS: 87086